=== PATIENT | male | born 1960 | race American Indian/Alaskan Native ===

== ENCOUNTER 2017-07-12 11:09 | Day surgery (SDC) | payer OTHER ==
[~2017-07-12 11:09] MED LIST: LACTATED RINGERS 1,000 ML IV SCH; VERSED IV NR; WATER FOR IRRIG STERILE IR ONE; mitoMYcin 0.02% Opth Soln *OR USE ONLY OS ONE
[2017-07-12] MEDS ORDERED: mitoMYcin 0.02% Opth Soln *OR USE ONLY OP ONE (13:00)
[2017-07-12] MEDS ORDERED: TETRACAINE 0.5% OS SCH (13:20)
[2017-07-12] MEDS ORDERED: TETRACAINE 0.5% ONE ×2 (13:35)
[2017-07-12] MEDS ORDERED: VIGAMOX ONE ×2 (13:36)
[2017-07-12] MEDS: VIGAMOX OS SCH ×2 (13:45→13:50)
[2017-07-12] MEDS ORDERED: XYLOCAINE 2%/ EPI 1:200,000 INFILTRATI ONE (15:30)
[2017-07-12] MEDS ORDERED: XYLOCAINE 1%/ EPI 1:100,000 INFILTRATI ONE ×2 (15:31→17:00)
[2017-07-12] MEDS ORDERED: SUBLIMAZE ONE (16:43)
[2017-07-12] MEDS ORDERED: VERSED ONE (16:46)
[2017-07-12] MEDS ORDERED: WATER FOR IRRIG STERILE IR ONE (16:59)
[2017-07-12] MEDS ORDERED: mitoMYcin 0.02% Opth Soln *OR USE ONLY OS ONE (17:10)
--- NOTE | 2017-07-12 17:16 | Anesthesia Day of Surgery ---
Anesthesia Day of Surgery - Day of Surgery Patient Examined: Yes Patient H&P Reviewed: Yes Patient is NPO: Yes
--- NOTE | 2017-07-12 17:17 | Anesthesia Consultation ---
Anesthesia Consult and Med Hx Date of service: 07/12/17 - Airway Anesthetic Teeth Evaluation: Good ROM Head & Neck: Adequate Mental/Hyoid Distance: Adequate Mallampati Class: Class II Intubation Access Assessment: Probably Good - Pulmonary Exam CTA: Yes - Cardiac Exam Cardiac Exam: RRR - Pre-Operative Health Status ASA Pre-Surgery Classification: ASA2 Proposed Anesthetic Plan: IV Sedation - Pulmonary Hx Sleep Apnea: Yes - Cardiovascular System Hx Hypertension: Yes (10) - Central Nervous System Hx Psychiatric Problems: No - Other Systems Hx Alcohol Use: No Hx Substance Use: No Hx Cancer: No
--- NOTE | 2017-07-12 17:29 | Post Anesthesia Evaluation ---
- Post Anesthesia Evaluation Patient Participated: Yes Airway Patent: Yes Stable Respiratory Function: Yes Nausea/Vomiting: No Temp > 96.8F: Yes Pain Manageable: Yes Adequeate Hydration: Yes Anesthesia Complications: No
--- NOTE | 2017-07-12 17:39 | Operative Report ---
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 TARRING MACHINE OPERATOR SURGEON: none ANESTHESIA: Monitored anesthesia care WEEDER: COMPLICATIONS: None ALLERGIES:NKDA PREOPERATIVE NOTE: The risks, benefits and alternatives of surgery were explained to the patient who after confirmining understanding elected to proceed with surgery. The risks discussed included but were not limited to infection, further surgery, loss of vision, loss of the eye. The patient had multiple opportunities to ask questions and have them answered. Preoperative instruction sheet was provided and explained to the patient and/or family. PROGNOSIS: Excellent INDICATIONS FOR SURGERY: Distortion of vision from the lesion. Without treatment , permanent visual loss is expected. OPERATIVE REPORT: The patient was taken into the preoperative area and then sedated and monitored by Anesthesia. The patient was prepped by applying a Betadine scrub to the periorbital area, the adjacent cheek, and the forehead. The prepped areas were dried with sterile gauze. The patient was draped, and a speculum was placed between the eyelids. 2% lidocaine was injected below the body of the pterygium. A cut-down was made through the body of the pterygium to bare sclera. The dissection was then carried towards the limbus, elevating up the pterygium. Moderate bleeding was encountered and treated with cautery. Once the dissection was taken to the limbus, the head of the pterygium was dissected off the cornea with a Tooke knife. The pterygium was densely scarred into the underlying stroma, making the dissection process difficult to perform. A superficial dissection plane was made in a few areas. The mass of fibrous growth was then excised from the limbus. A janina bur on a high-speed drill was used to smooth the area of the cornea where the pterygium was removed. This was done in order to leave the tissue smooth and minimize the chance of recurrence. A rough limbal surface increases the risks of irritation, inflammation, and the possibility of postoperative recurrence in the eye. The limbal area was smoothed with the janina bur, and care was taken not to remove too much tissue, leaving the cornea ectatic. After the scar tissue was removed, Mitomycin-C was placed on bare sclera x 60 secs on the eye with Weck-alessandro sponges and immediately irrigated off. The irrigation was done liberally to prevent any Mitomycin-C contamination to the rest of the field and the eye. The cornea was irrigated with balanced salt solution. Once the pterygium was excised and the cornea smoothed, cautery was used to control any bleeding in the bed of bare sclera. The peripheral edges of remaining conjunctiva around the bare sclera had its edges undermined slightly to allow it to be fixed to the underlying sclera when the tissue adhesive would be applied. Calipers were then used to measure the width and length of the area of bare sclera. After marking the tips of the calipers, they were used to aguila the amniotic graft. Scissors were next used to first undermine and then excise the graft. Fine-tooth forceps were used carefully to elevate the graft and moved to the area of the bare sclera. It was moved carefully to make sure that first of all the epithelial side remained upward . After the graft was found to be suitable for the area to be covered, it was temporarily moved off the bare sclera and Tisseel tissue adhesive was applied in its two components as separate stages over the area of bare sclera. The graft was placed back in position and its edges were first pushed down 360 to allow firm fixation. The central area was also pushed down with firm pressure from a flat surfaced instrument. Next the edges of the previously undermined adjacent conjunctiva were pushed down to allow firm fixation. The flap was allowed to stay unmanipulated for ten minutes prior to removing the lid speculum. MEDICATIONS APPLIED AT END OF SURGERY: bandage Contact lens was placed onto the eye fallowed by the application of Vigamox. DISCHARGE SUMMARY: The patient was released in stable condition. The patient and those with the patient were given a written sheet of postoperative instructions and counseling on any abnormal laboratory studies. They are to call immediately for difficulties.
--- NOTE | 2017-07-12 17:41 | Short Stay Summary ---
Short Stay Documentation Date of service: 07/12/17 - History H&P: obtained from office - Allergies and Medications Current Medications: Allergies No Known Allergies Allergy (Verified 07/10/17 15:05) Home Medications Medication Instructions Recorded Confirmed Last Taken Type Lisinopril [Zestril] 20 mg PO QDAY 07/10/17 07/12/17 07/11/17 07:00 History Active Medications Lactated Ringer's (Lactated Ringers) 1,000 mls @ 100 mls/hr IV DIRECT JENNIFER Moxifloxacin HCl (Vigamox) 1 drops OS Q5MIN JENNIFER Stop: 07/12/17 23:59 Last Admin: 07/12/17 13:50 Dose: 1 drops Prednisolone Acetate (Pred Forte 1%) 1 drops OS QID JENNIFER Tetracaine HCl (Tetracaine 0.5%) 1 drops OS ONCE JENNIFER Stop: 07/12/17 23:59 Last Admin: 07/12/17 13:45 Dose: 1 drops - Brief post op/procedure progress note Date of procedure: 07/12/17 Pre-op diagnosis: left pterygium Post-op diagnosis: same Procedure: Pterygium excision with mitomycin-C and amniotic graft membrane placement left eye Anesthesia: MAC, local Surgeon: DELMY OCONNOR Estimated blood loss: none Pathology: list (left nasal pterygium) Specimen disposition: to lab Condition: stable - Disposition Condition at discharge: Good Disposition: DC-01 TO HOME OR SELFCARE - Discharge Diagnoses (1) Pterygium of eye Status: Resolved Qualifiers: Laterality: left Qualified Code(s): H11.002 - Unspecified pterygium of left eye Short Stay Discharge Plan Follow up with: VIKTORIA BROWN MD [Primary Care Provider] - 7 Days
[2017-07-12] MEDS ORDERED: PRED FORTE 1% OS SCH (18:00)
[2017-07-12 19:07] VITALS: BP 140/83
== END 2017-07-12 18:45 | disposition home or self-care (01) ==
LOC: OR 11:09
DX: H11.002 Unspecified pterygium of left eye (principal); I10 Essential (primary) hypertension; G47.30 Sleep apnea, unspecified
CPT/HCPCS: 65426; 88304; C9250; J2250; J3010; J7315; V2790

== ENCOUNTER 2020-06-14 07:49 | Day surgery (SDC) | payer OTHER ==
[~2020-06-14 07:49] MED LIST changes: +ACETAMINOPHEN 500 MG TAB PO SCH; +MIDAZOLAM 2 MG/2 ML INJ IV NR; -VERSED IV NR; -WATER FOR IRRIG STERILE IR ONE; -mitoMYcin 0.02% Opth Soln *OR USE ONLY OS ONE
[2020-06-14] MEDS ORDERED: ONDANSETRON 4 MG/2 ML INJ IV PRN (08:46)
[2020-06-14] MEDS ORDERED: fentaNYL 100 MCG/2 ML INJ IV PRN (08:46)
--- NOTE | 2020-06-14 08:46 | Anesthesia Day of Surgery ---
Anesthesia Day of Surgery - Day of Surgery Patient Examined: Yes Patient H&P Reviewed: Yes Patient is NPO: Yes
--- NOTE | 2020-06-14 08:46 | Anesthesia Consultation ---
Anesthesia Consult and Med Hx Date of service: 06/14/20 - Airway Anesthetic Teeth Evaluation: Good, Caps, Crowns ROM Head & Neck: Adequate Mental/Hyoid Distance: Adequate Mallampati Class: Class III Intubation Access Assessment: Possibly Difficult - Pre-Operative Health Status ASA Pre-Surgery Classification: ASA2 Proposed Anesthetic Plan: General - Pulmonary Hx Smoking: No Hx Respiratory Symptoms: No Hx Sleep Apnea: Yes (intermittently compliant with CPAP) - Cardiovascular System Hx Hypertension: Yes Hx Heart Attack/AMI: No Hx Percutaneous Transluminal Coronary Angioplasty (PTCA): No - Central Nervous System CVA: No - Endocrine Hx Renal Disease: No Hx Liver Disease: No Hx Insulin Dependent Diabetes: No Hx Non-Insulin Dependent Diabetes: No Hx Thyroid Disease: No - Other Systems Hx Obesity: No - Additional Comments Anesthesia Medical History Comments: No hx anesthetic complications.
[2020-06-14] MEDS ORDERED: LIDOCAINE MPF (2%) 20 MG/1 ML VIAL 5 ML ONE (09:47)
[2020-06-14] MEDS ORDERED: fentaNYL 100 MCG/2 ML INJ ONE (09:47)
[2020-06-14] MEDS ORDERED: propofoL 200 MG/20 ML VIAL IV ONE (09:47)
[2020-06-14] MEDS ORDERED: GENTAMICIN/NS 80 MG/100 ML 100 ML IV SCH (10:00)
[2020-06-14] MEDS ORDERED: ceFAZolin/STERILE WATER 2 GM/20 ML SYRINGE IV NR (10:00)
[2020-06-14] MEDS ORDERED: WATER FOR IRRIG STERILE 2000 ML IR ONE (10:00)
[2020-06-14] MEDS ORDERED: LIDOCAINE PF 100 MG/5 ML (CARDIAC SYRINGE) IV ONE (10:21)
[2020-06-14] MEDS ORDERED: KETOROLAC 30 MG/1 ML INJ ONE (10:21)
[2020-06-14] MEDS ORDERED: dexAMETHasone 20 MG/5 ML VIAL ONE (10:21)
[2020-06-14] MEDS ORDERED: ONDANSETRON 4 MG/2 ML INJ ONE (10:30)
--- NOTE | 2020-06-14 10:30 | Short Stay Summary ---
Short Stay Documentation Date of service: 06/14/20 - History H&P: obtained from office - Allergies and Medications Current Medications: Allergies No Known Allergies Allergy (Verified 06/10/20 15:46) Home Medications Medication Instructions Recorded Confirmed Last Taken Type lisinopriL [Zestril] 20 mg PO QDAY 07/10/17 06/14/20 06/13/20 History Active Medications Acetaminophen (Acetaminophen 500 Mg Tab) 1,000 mg PO PREOP JENNIFER Stop: 06/14/20 23:59 Last Admin: 06/14/20 09:10 Dose: 1,000 mg Documented by: Cefazolin Sodium (Cefazolin/Sterile Water 2 Gm/20 Ml Syringe) 2 gm IV PREOP NR Stop: 06/14/20 21:00 Fentanyl (Fentanyl 100 Mcg/2 Ml Inj) 50 mcg IV Q5MIN PRN PRN Reason: Pain , Severe (7-10) Stop: 06/14/20 23:00 Lactated Ringer's (Lactated Ringers) 1,000 mls @ 100 mls/hr IV DIRECT JENNIFER Stop: 06/14/20 23:59 Last Admin: 06/14/20 09:15 Dose: 100 mls/hr Documented by: Gentamicin Sulfate/Sodium Chloride (Gentamicin/Ns 80 Mg/100 Ml) 100 mls @ 200 mls/hr IV ONCE JENNIFER Stop: 06/14/20 21:00 Midazolam HCl (Midazolam 2 Mg/2 Ml Inj) 2 mg IV PREOP NR Stop: 06/14/20 23:59 Last Admin: 06/14/20 09:15 Dose: 2 mg Documented by: Ondansetron HCl (Ondansetron 4 Mg/2 Ml Inj) 4 mg IV ONCE PRN PRN Reason: Nausea And Vomiting Stop: 06/14/20 13:00 - Brief post op/procedure progress note Date of procedure: 06/14/20 Pre-op diagnosis: elevated psa 10, bph Post-op diagnosis: same Procedure: cysto, rpg, pus 40cc, prostate bx Anesthesia: NITZA Surgeon: FIDE PANTOJA Estimated blood loss: minimal Pathology: list (prostate cores) Specimen disposition: to lab Condition: stable - Hospital course Hospital course: bactrim & norco on chart - Disposition Condition at discharge: Stable Disposition: DC- TO HOME OR SELFCARE Short Stay Discharge Plan Follow up with: AKINYULIANA MITCHELLOTAYO OMOLOLA, MD [Primary Care Provider] - 7 Days
--- NOTE | 2020-06-14 11:35 | Ultrasound Report ---
ULTRASOUND TRANSRECTAL HISTORY: Elevated PSA levels. Guidance for prostate biopsy. TECHNIQUE: Transrectal grayscale ultrasound. FINDINGS: Transrectal ultrasound guidance was provided by radiology during prostate biopsy by urology. Prostate volume measures 41.4 cc. Please correlate with the procedural report as needed. Signer Name: Mayur Weir Jr, MD Signed: 06/14/2020 11:31 AM Workstation Name: [id number]
--- NOTE | 2020-06-14 14:00 | Operative Report ---
PREOPERATIVE DIAGNOSES: Elevated PSA of 10. POSTOPERATIVE DIAGNOSES: Elevated PSA of 10, BPH. PROCEDURE: Cystoscopy, bilateral retrograde pyelograms, transrectal ultrasound 40 mL, saturation biopsy. SURGEON: Salvador Yoon MD ANESTHESIA: General. ESTIMATED BLOOD LOSS: Minimal. FLUIDS: Crystalloid. COMPLICATIONS: No complications. INDICATIONS: This patient is a 59-year-old male with a history of elevated PSA. He had previous biopsy for PSA of 6. Most recent PSA was 10. MRI of the prostate revealed a suspicious area on the right side, small in size. Discussed fusion versus saturation biopsy. The patient agreed to proceed with surgical intervention. He wanted saturation biopsy. DESCRIPTION OF PROCEDURE: The patient was taken to the operative suite, placed in a supine position. After adequate general anesthesia, placed in a dorsal lithotomy position, prepped and draped in a sterile fashion. Pancystourethroscopy was performed with a 22-American Storz cystoscope, no urethral abnormalities except for some mild stenosis at the bulbar urethra. Prostate mild to moderate trilobar obstruction. Bladder, no tumors or stones were noted. He does have some diffuse trabeculation. Both ureteral orifices in normal position. Bilateral retrograde pyelograms were obtained with an 8-American Joanne catheter and 8 mL of contrast. No filling defects or obstruction. Next, using prostate ultrasound, sagittal and transverse planes were obtained for total measurement of 40 mL. No obvious lesions could be appreciated on ultrasound; however 12-core biopsy was obtained placing 2 cores in each cup as saturation. The patient tolerated the procedure well. Rectal exam was benign. He was extubated and taken to recovery room in stable condition. He will go home on Bactrim and [place] and follow up in the office. JOB# [id number] [facility]/PATY
--- NOTE | 2020-06-14 16:03 | Fluoroscopy Report ---
FLUOROSCOPY RETROGRADE UROGRAPHY HISTORY: Elevated PSA, BPH FINDINGS: Fluoroscopy was provided by radiology during retrograde urography by the urologist. There i s normal filling of both renal collecting systems. No filling defect or abnormal dilatation is identi fied. IMPRESSION: Unremarkable bilateral retrograde pyelograms Fluoroscopy time: 19 seconds Fluoroscopic images: 6 Signer Name: Mayur Weir Jr, MD Signed: 06/14/2020 3:59 PM Workstation Name: [id number]
[2020-06-14 19:04] VITALS: BP 142/88
== END 2020-06-14 07:50 | disposition home or self-care (01) ==
LOC: OR 07:49
PROVIDERS: ATTEND Urology
DX: R97.20 Elevated prostate specific antigen [PSA] (principal); N40.0 Benign prostatic hyperplasia without lower urinary tract symptoms; C61 Malignant neoplasm of prostate; G43.909 Migraine, unspecified, not intractable, without status migrainosus; E78.00 Pure hypercholesterolemia, unspecified; I10 Essential (primary) hypertension; G47.30 Sleep apnea, unspecified; Z96.652 Presence of left artificial knee joint; Z72.89 Other problems related to lifestyle
CPT/HCPCS: 52005; 55700; 74420; 76872; 88305; A4217; C1758; J0690; J1100; J1580; J1885; J2001; J2250; J2405; J2704; J3010; J7120; Q9967

== ENCOUNTER 2020-09-06 08:12 | Observation (INO) | payer OTHER ==
[~2020-09-06 08:12] MED LIST changes: +BUPIVACAINE/PF (0.5%) 5 MG/1 ML 30 ML VIAL INFILTRATI ONE; +CALCIUM CHLORIDE 1,000 MG/10 ML SYRINGE IV ONE; +CELECOXIB 200 MG CAP PO NR; +CITRIC ACID-SOD CITRATE 0 ML IV ONE; +GABAPENTIN 300 MG CAP PO NR; +HYDROmorphone 1 MG/1 ML INJ ONE; -LACTATED RINGERS 1,000 ML IV SCH; +LIDOCAINE MPF (2%) 20 MG/1 ML VIAL 5 ML ONE; +METHYLENE BLUE 50 MG/10 ML AMP ONE; +ONDANSETRON 4 MG/2 ML INJ ONE; +ROCURONIUM 50 MG/5 ML INJ IV ONE; +SCOPOLAMINE TRANSDERMAL PATCH 72 HR TD NR; +THROMBIN (RECOMBINANT) 5,000 UNIT VIAL TP ONE; +dexAMETHasone 20 MG/5 ML VIAL ONE; +fentaNYL 100 MCG/2 ML INJ IV PRN; +propofoL 200 MG/20 ML VIAL IV ONE
[2020-09-06] MEDS ORDERED: ceFAZolin/Water 2 GM/20 ML 2 GM/20 ML SYRINGE IV NR (09:00)
[2020-09-06] MEDS ORDERED: HYDROmorphone 1 MG/1 ML INJ IV PRN (09:28)
[2020-09-06] MEDS ORDERED: ONDANSETRON 4 MG/2 ML INJ IV PRN ×2 (09:28→16:40)
--- NOTE | 2020-09-06 09:28 | Anesthesia Consultation ---
Anesthesia Consult and Med Hx Date of service: 09/06/20 - Airway Anesthetic Teeth Evaluation: Good ROM Head & Neck: Adequate Mental/Hyoid Distance: Adequate Mallampati Class: Class III Intubation Access Assessment: Possibly Difficult - Pre-Operative Health Status ASA Pre-Surgery Classification: ASA2 Proposed Anesthetic Plan: General - Pulmonary Hx Smoking: No Hx Respiratory Symptoms: No Hx Sleep Apnea: Yes (+ CPAP) - Cardiovascular System Hx Hypertension: Yes Hx Heart Attack/AMI: No Hx Percutaneous Transluminal Coronary Angioplasty (PTCA): No Hx Cardia Arrhythmia: No - Central Nervous System CVA: No - Endocrine Hx Renal Disease: No Hx Liver Disease: No Hx Insulin Dependent Diabetes: No Hx Non-Insulin Dependent Diabetes: No Hx Thyroid Disease: No - Other Systems Hx Cancer: Yes (prostate ca) Hx Obesity: No - Additional Comments Anesthesia Medical History Comments: Hx PDNV.
--- NOTE | 2020-09-06 09:28 | Anesthesia Day of Surgery ---
Anesthesia Day of Surgery - Day of Surgery Patient Examined: Yes Patient H&P Reviewed: Yes Patient is NPO: Yes
[2020-09-06] MEDS: LACTATED RINGERS 1,000 ML IV SCH (09:45)
[2020-09-06 09:55] LABS: Hematocrit 44.4 % (35.5-45.6); Mean Corpuscular HGB Conc 34 % (32-34); Mean Corpuscular Volume 89 fl (84-94); Platelet Count 220 K/mm3 (140-440); Red Blood Count 4.98 M/mm3 (3.65-5.03); Red Cell Distribution Width 14.9 % (13.2-15.2)
[2020-09-06 10:25] LABS: Alanine Aminotransferase 17 units/L (7-56); Albumin 4.5 g/dL (3.9-5); BUN/Creatinine Ratio 14; Blood Urea Nitrogen 14 mg/dL (9-20); Calcium 9.8 mg/dL (8.4-10.2); Hemolysis Index 6
[2020-09-06] MEDS ORDERED: BUPIVACAINE-EPINEPHRINE/PF 0.25%-1:200,000 (30 ML) VIAL INFILTRATI ONE (10:54)
[2020-09-06] MEDS ORDERED: dexAMETHasone 4 MG/ML VIAL ONE (10:54)
[2020-09-06] MEDS ORDERED: CITRIC ACID-SOD CITRATE 500 ML IV ONE (13:23)
[2020-09-06] MEDS ORDERED: THROMBIN (RECOMBINANT) 5,000 UNIT VIAL TP ONE ×2 (13:24→15:05)
[2020-09-06] MEDS ORDERED: METHYLENE BLUE 50 MG/10 ML AMP ONE (13:24)
[2020-09-06] MEDS ORDERED: ROCURONIUM 50 MG/5 ML INJ IV ONE (14:50)
[2020-09-06] MEDS ORDERED: LACTATED RINGERS 1,000 ML ONE (14:50)
[2020-09-06] MEDS ORDERED: SODIUM CHLORIDE 0.9% IRR 1,500 ML BOTTLE IR ONE (15:05)
[2020-09-06] MEDS ORDERED: CALCIUM CHLORIDE 1,000 MG/10 ML SYRINGE IV ONE (15:06)
[2020-09-06] MEDS ORDERED: SODIUM CHLORIDE 0.9% IRRIG SOLN 2000 ML IR ONE (15:06)
[2020-09-06] MEDS ORDERED: CITRIC ACID-SOD CITRATE SOLN 500 ML IV SOLN IV ONE (15:07)
[2020-09-06] MEDS ORDERED: PHENYLEPHRINE/NS 1,000 MCG/10 ML SYRINGE (OR USE) IV ONE (15:14)
--- NOTE | 2020-09-06 16:39 | Short Stay Summary ---
Short Stay Documentation Date of service: 09/06/20 - History H&P: obtained from office - Allergies and Medications Current Medications: Allergies No Known Allergies Allergy (Verified 06/10/20 15:46) Home Medications Medication Instructions Recorded Confirmed Last Taken Type lisinopriL [Zestril] 10 mg PO QDAY 07/10/17 09/03/20 09/05/20 History Pitavastatin Calcium [LiVALO] 4 mg PO DAILY 09/03/20 09/03/20 09/05/20 History Active Medications Acetaminophen (Acetaminophen 500 Mg Tab) 1,000 mg PO PREOP JENNIFER Stop: 09/06/20 23:59 Last Admin: 09/06/20 09:37 Dose: 1,000 mg Documented by: Celecoxib (Celecoxib 200 Mg Cap) 200 mg PO PREOP NR Stop: 09/06/20 23:59 Last Admin: 09/06/20 09:37 Dose: 200 mg Documented by: Fentanyl (Fentanyl 100 Mcg/2 Ml Inj) 100 mcg IV ONCE PRN PRN Reason: sedation for nerve block Last Admin: 09/06/20 12:46 Dose: 100 mcg Documented by: Gabapentin (Gabapentin 300 Mg Cap) 300 mg PO PREOP NR Stop: 09/06/20 23:59 Last Admin: 09/06/20 09:37 Dose: 300 mg Documented by: Hydromorphone HCl (Hydromorphone 1 Mg/1 Ml Inj) 0.5 mg IV Q10MIN PRN PRN Reason: Pain , Severe (7-10) Stop: 09/06/20 23:00 Lactated Ringer's (Lactated Ringers) 1,000 mls @ 100 mls/hr IV DIRECT JENNIFER Stop: 09/06/20 23:59 Last Admin: 09/06/20 09:45 Dose: 100 mls/hr Documented by: Cefazolin Sodium (Ancef/Sterile Water 2 Gm/20 Ml) 2 gm in 20 mls @ 80 mls/hr IV PREOP NR; Protocol Stop: 09/06/20 20:00 Midazolam HCl (Midazolam 2 Mg/2 Ml Inj) 2 mg IV PREOP NR Stop: 09/06/20 23:59 Last Admin: 09/06/20 12:46 Dose: 2 mg Documented by: Scopolamine (Scopolamine Transdermal Patch 72 Hr) 1 each TD PREOP NR Stop: 09/06/20 23:59 Last Admin: 09/06/20 09:35 Dose: 1 each Documented by: - Brief post op/procedure progress note Date of procedure: 09/06/20 Pre-op diagnosis: prostate cancer Post-op diagnosis: same Procedure: robotic proststectomy Anesthesia: GETA Surgeon: FIDE PANTOJA Estimated blood loss: minimal (prostate) Pathology: list Specimen disposition: to lab Condition: stable - Hospital course Hospital course: bactrim,norco, post op info on chart looks good waldemar removed home with ovalles - Disposition Condition at discharge: Stable Disposition: DC-01 TO HOME OR SELFCARE Short Stay Discharge Plan Follow up with: VIKTORIA BROWN MD [Primary Care Provider] - 7 Days
[2020-09-06] MEDS ORDERED: NALOXONE 0.4 MG/1 ML INJ IV PRN (16:40)
[2020-09-06] MEDS ORDERED: MORPHINE 4 MG/1 ML INJ IV PRN (16:40)
[2020-09-06] MEDS ORDERED: ZOLPIDEM 5 MG TAB PO PRN (16:40)
[2020-09-06] MEDS ORDERED: ACETAMINOPHEN 325 MG TAB PO PRN (16:40)
[2020-09-06] MEDS ORDERED: HYDROcodone/ACETAMINOPHEN 5-325 MG TAB PO PRN (16:40)
[2020-09-06] MEDS ORDERED: NEOSTIGMINE 10MG/10 ML INJ MDV ONE (16:47)
[2020-09-06] MEDS ORDERED: GLYCOPYRROLATE 0.4 MG/2 ML INJ ONE (16:47)
[2020-09-06] MEDS: ceFAZolin/NS 1 GM/50 ML 1 GM/50 ML BAG IV SCH (21:48)
--- NOTE | 2020-09-06 21:51 | Operative Report ---
DATE OF SURGERY: 09/06/2020 PREOPERATIVE DIAGNOSIS: Prostate cancer. POSTOPERATIVE DIAGNOSIS: Prostate cancer. PROCEDURE: Robotic-assisted laparoscopic prostatectomy, bladder neck suspension, stem cell implant. SURGEON: Salvador Yoon MD ULTRASOUND SONOGRAPHER: Carolina Saul. ANESTHESIA: General. ESTIMATED BLOOD LOSS: ____ mL, 150 mL Cell Saver. DRAINS: Jonathan-Ramesh drain x1. COMPLICATIONS: No complications. INDICATIONS: This patient is a 59-year-old gentleman seen in the office for an elevated PSA of 6.2. He underwent a biopsy 2 years ago, which was negative. PSA went to 10. He underwent recent saturation biopsy of the prostate and was found to have Karis score 8 adenocarcinoma of the prostate. CT scan and bone scan were negative. He presents now for surgical intervention. DESCRIPTION OF PROCEDURE: The patient was taken to the operative suite, placed in supine position. After adequate general anesthesia, was placed in a modified dorsal lithotomy position, prepped and draped in a sterile fashion. Barclay catheter was placed on the operative field. The patient has a history of abdominal wall hernia with mesh. A 5 mm port was placed in the right upper quadrant under direct vision to evaluate his umbilical hernia, a small hernia could be appreciated. No significant adhesions were then noted. A 1 cm supraumbilical incision was made. Port was then placed under direct vision approximately 2 cm above his umbilical hernia, 8 mm ports were then marked 15 cm cephalad. The pubic symphysis was marked an additional 9 cm lateral, which allowed for placement of 8 mm ports on the left, one 8 mm port on the right and an additional 10 mm helper port. The patient was placed in exaggerated Trendelenburg position. No signs of metastasis or bleeding could be appreciated. Second arch was identified posterior to the prostate, bladder. It was scored. Seminal vesicles and vas deferens were identified. Robotic cart was docked between the legs. ____ vas deferens were transected. Attention was taken to the anterior abdominal wall laterally. Lateral umbilical ligament was scored, taken down to the pubic rami. Bladder flap was dropped. The dorsal vein complex was then controlled with a 60 mm vascular stapler. The endopelvic fascia was opened bilaterally without difficulty. Anterior bladder neck was transected. Barclay catheter could be appreciated and was pulled anteriorly. The patient had a fair amount of inflammation noted in the bladder neck. Posterior bladder neck was transected with same inflammation noted as well as a large median lobe. Median lobe was excised, a rim of bladder neck was transected and sent for routine pathologic evaluation. Lateral pedicles were then controlled with a 60 mm vascular stapler. Dissection was then taken to the apex of the prostate. [place] was transected. Posterior to the prostate was dissected free and prostate was placed in the EndoCatch bag. Examination of the rectum with no injuries could be appreciated. Copious irrigation was performed. Adequate hemostasis was achieved. No bladder neck instruction was needed due to the size of the bladder neck. Double armed V-Loc stitch was placed at the 6 o'clock position of the bladder neck corresponding aspect of the urethra, running stitch was placed bilaterally. A new 18-[place] Barclay catheter was placed into the bladder without difficulty. Anastomotic stitch was cinched down. A 15 mL of water in the balloon irrigated well. No leak. V-Loc stitch was then placed in the pubic rami posteriorly to add tension (bladder neck suspension). [place] were then cut. Stem cell graft was placed on the anterior wall of the rectum and the area of the neurovascular bundle, corresponding to the 5 o'clock and 7 o'clock positions of the prostate. Platelet membrane was placed on the anterior aspect of the urethra. Platelet rich plasma, platelet poor plasma was injected around the urethra to aid with continence and erection. A 10 mm Jonathan-Ramesh drain was brought out through the 8 mm port on the left. The robotic cart was removed. The patient placed in a supine position. A supraumbilical incision was extended slightly to allow removal of the prostate, 0 Vicryl in a [id number] fashion was used to close the supraumbilical incision. The other incisions were closed with a 2-0 Vicryl in interrupted fashion. Jonathan-Ramesh drain was secured with 2-0 silk in an interrupted fashion. Barclay catheter sideport was folded over and tied with 0 silk in interrupted fashion. The patient tolerated the procedure well and was extubated and taken to recovery room. Carolina Saul was present throughout the procedure at the bedside to assist with surgical management. TID: [id number] RECEIPT: [id number] BAKARI/LUIS ANTONIO/FLAKO
--- NOTE | 2020-09-06 23:22 | Consultation ---
History of Present Illness - Reason for Consult Consult date: 09/06/20 Medical management Requesting physician: FIDE PANTOJA - History of Present Illness S/p robotic prostatectomy. Postop patient doing well. No shortness of breath no chest pain. No diaphoresis. Lying comfortably. Past History Past Medical History: hypertension, hyperlipidemia Past Surgical History: Other (Robotic prostatectomy) Social history: lives with family, full code Family history: hypertension Medications and Allergies Allergies Allergy/AdvReac Type Severity Reaction Status Date / Time No Known Allergies Allergy Verified 06/10/20 15:46 Home Medications Medication Instructions Recorded Confirmed Last Taken Type lisinopriL [Zestril] 10 mg PO QDAY 07/10/17 09/03/20 09/05/20 History Pitavastatin Calcium [LiVALO] 4 mg PO DAILY 09/03/20 09/03/20 09/05/20 History Active Meds: Active Medications Acetaminophen (Acetaminophen 500 Mg Tab) 1,000 mg PO PREOP JENNIFER Stop: 09/06/20 23:59 Last Admin: 09/06/20 09:37 Dose: 1,000 mg Documented by: Acetaminophen (Acetaminophen 325 Mg Tab) 650 mg PO Q4H PRN PRN Reason: Pain, Mild (1-3)/Fever > 100.5 Hydrocodone Bitart/Acetaminophen (Hydrocodone/Acetaminophen 5-325 Mg Tab) 2 each PO Q4H PRN PRN Reason: Pain, Moderate (4-6) Atorvastatin Calcium (Atorvastatin 20 Mg Tab) 20 mg PO QHS JENNIFER Last Admin: 09/06/20 21:49 Dose: 20 mg Documented by: Celecoxib (Celecoxib 200 Mg Cap) 200 mg PO PREOP NR Stop: 09/06/20 23:59 Last Admin: 09/06/20 09:37 Dose: 200 mg Documented by: Fentanyl (Fentanyl 100 Mcg/2 Ml Inj) 100 mcg IV ONCE PRN PRN Reason: sedation for nerve block Last Admin: 09/06/20 12:46 Dose: 100 mcg Documented by: Gabapentin (Gabapentin 300 Mg Cap) 300 mg PO PREOP NR Stop: 09/06/20 23:59 Last Admin: 09/06/20 09:37 Dose: 300 mg Documented by: Lactated Ringer's (Lactated Ringers) 1,000 mls @ 100 mls/hr IV DIRECT JENNIFER Stop: 09/06/20 23:59 Last Admin: 09/06/20 09:45 Dose: 100 mls/hr Documented by: Cefazolin Sodium (Ancef/Ns 1 Gm/50 Ml) 1 gm in 50 mls @ 100 mls/hr IV Q8H JENNIFER; Protocol Stop: 09/07/20 03:29 Last Admin: 09/06/20 21:48 Dose: 100 mls/hr Documented by: Lisinopril (Lisinopril 10 Mg Tab) 10 mg PO QDAY JENNIFER Midazolam HCl (Midazolam 2 Mg/2 Ml Inj) 2 mg IV PREOP NR Stop: 09/06/20 23:59 Last Admin: 09/06/20 12:46 Dose: 2 mg Documented by: Morphine Sulfate (Morphine 4 Mg/1 Ml Inj) 4 mg IV Q4H PRN PRN Reason: Pain , Severe (7-10) Naloxone HCl (Naloxone 0.4 Mg/1 Ml Inj) 0.1 mg IV Q2MIN PRN PRN Reason: Res Rate </= 8 or 02 SAT < 92% Ondansetron HCl (Ondansetron 4 Mg/2 Ml Inj) 4 mg IV Q8H PRN PRN Reason: Nausea And Vomiting Scopolamine (Scopolamine Transdermal Patch 72 Hr) 1 each TD PREOP NR Stop: 09/06/20 23:59 Last Admin: 09/06/20 09:35 Dose: 1 each Documented by: Zolpidem Tartrate (Zolpidem 5 Mg Tab) 5 mg PO QHS PRN PRN Reason: Sleep Review of Systems All systems: negative Exam - Constitutional Vitals: Temp Pulse Resp BP Pulse Ox 97.3 F L 87 18 157/93 93 09/06/20 19:00 09/06/20 19:00 09/06/20 19:00 09/06/20 19:00 09/06/20 19:00 General appearance: Present: no acute distress, well-nourished - EENT Eyes: Present: PERRL ENT: hearing intact, clear oral mucosa - Neck Neck: Present: supple, normal ROM - Respiratory Respiratory effort: normal Respiratory: bilateral: CTA - Cardiovascular Heart rate: 78 Rhythm: regular Heart Sounds: Present: S1 & S2. Absent: rub, click - Extremities Extremities: pulses symmetrical, No edema Peripheral Pulses: within normal limits - Abdominal General gastrointestinal: Present: soft, non-tender, non-distended, normal bowel sounds Male genitourinary: Present: normal - Integumentary Integumentary: Present: clear, warm, dry - Musculoskeletal Musculoskeletal: gait normal, strength equal bilaterally - Psychiatric Psychiatric: appropriate mood/affect, intact judgment & insight - Neurologic Neurologic: CNII-XII intact, moves all extremities Results - Labs CBC & Chem 7: 09/06/20 09:45 09/06/20 09:45 Assessment and Plan - Patient Problems (1) Hypertension Current Visit: Yes Status: Chronic Qualifiers: Hypertension type: primary hypertension Qualified Code(s): I10 - Essential (primary) hypertension Plan to address problem: Continue lisinopril. (2) Hyperlipidemia Current Visit: Yes Status: Chronic Qualifiers: Hyperlipidemia type: mixed hyperlipidemia Qualified Code(s): E78.2 - Mixed hyperlipidemia Plan to address problem: Continue statins. (3) DVT prophylaxis Current Visit: Yes Status: Acute Plan to address problem: SCDs and GI prophylaxis
[2020-09-07] MEDS: LACTATED RINGERS 1,000 ML IV SCH (01:14)
[2020-09-07] MEDS: ceFAZolin/NS 1 GM/50 ML 1 GM/50 ML BAG IV SCH (04:11)
[2020-09-07 08:13] VITALS: BP 123/74
[2020-09-07] MEDS ORDERED: PITAVASTATIN CALCIUM 4 MG PO SCH (10:00)
[2020-09-07] MEDS ORDERED: LISINOPRIL 10 MG TAB PO SCH (10:00)
[2020-09-07] MEDS ORDERED: LISINOPRIL 20 MG TAB PO SCH (10:00)
--- NOTE | 2020-09-07 12:37 | Progress Note ---
Assessment and Plan Assessment and plan: -- Hypertension Current Visit: Yes Status: Chronic Continue lisinopril. Well-controlled -- Hyperlipidemia Current Visit: Yes Status: Chronic Continue statins. Low-cholesterol diet --DVT prophylaxis Current Visit: Yes Status: Acute SCDs and GI prophylaxis Increase ambulation as tolerated post discharge History of prostate cancer status post robotic prostatectomy Postop care and management per urology Medically stable for discharge Patient needs to follow-up with primary care physician for his medical needs Thank you for this consultation we will sign off History Interval history: Patient with history of prostate cancer status post robotic prostatectomy Stable for discharge Urologist planned discharge for today Vital signs noted Hospitalist Physical - Physical exam Narrative exam: Physical exam no new changes - Constitutional Vitals: Temp Pulse Resp BP Pulse Ox 98.4 F 76 16 123/74 98 09/07/20 07:54 09/07/20 08:17 09/07/20 07:54 09/07/20 08:17 09/07/20 07:54 General appearance: Present: no acute distress, well-nourished Results - Labs CBC & Chem 7: 09/06/20 09:45 09/06/20 09:45 Labs: Laboratory Last Values WBC 5.6 K/mm3 (4.5-11.0) 09/06/20 09:45 RBC 4.98 M/mm3 (3.65-5.03) 09/06/20 09:45 Hgb 15.0 gm/dl (11.8-15.2) 09/06/20 09:45 Hct 44.4 % (35.5-45.6) 09/06/20 09:45 MCV 89 fl (84-94) 09/06/20 09:45 MCH 30 pg (28-32) 09/06/20 09:45 MCHC 34 % (32-34) 09/06/20 09:45 RDW 14.9 % (13.2-15.2) 09/06/20 09:45 Plt Count 220 K/mm3 (140-440) 09/06/20 09:45 Sodium 138 mmol/L (137-145) 09/06/20 09:45 Potassium 4.2 mmol/L (3.6-5.0) 09/06/20 09:45 Chloride 101.1 mmol/L (98-107) 09/06/20 09:45 Carbon Dioxide 30 mmol/L (22-30) 09/06/20 09:45 Anion Gap 11 mmol/L 09/06/20 09:45 BUN 14 mg/dL (9-20) 09/06/20 09:45 Creatinine 1.0 mg/dL (0.8-1.3) 09/06/20 09:45 Estimated GFR > 60 ml/min 09/06/20 09:45 BUN/Creatinine Ratio 14 % 09/06/20 09:45 Glucose 82 mg/dL (75-100) 09/06/20 09:45 Calcium 9.8 mg/dL (8.4-10.2) 09/06/20 09:45 Total Bilirubin 0.70 mg/dL (0.1-1.2) 09/06/20 09:45 AST 19 units/L (5-40) 09/06/20 09:45 ALT 17 units/L (7-56) 09/06/20 09:45 Alkaline Phosphatase 65 units/L (35-129) 09/06/20 09:45 Total Protein 7.2 g/dL (6.3-8.2) 09/06/20 09:45 Albumin 4.5 g/dL (3.9-5) 09/06/20 09:45 Albumin/Globulin Ratio 1.7 % 09/06/20 09:45 Blood Type O POSITIVE 09/06/20 09:45 Antibody Screen Negative 09/06/20 09:45 Barclay/IV: Voiding Method Indwelling Catheter Active Medications - Current Medications Current Medications: Generic Name Dose Route Start Last Admin Trade Name Freq PRN Reason Stop Dose Admin Acetaminophen 650 mg 09/06/20 16:40 Acetaminophen 325 Mg Tab PO Q4H PRN Pain, Mild (1-3)/Fever > 100.5 Hydrocodone Bitart/Acetaminophen 2 each 09/06/20 16:40 Hydrocodone/Acetaminophen 5-325 Mg Tab PO Q4H PRN Pain, Moderate (4-6) Atorvastatin Calcium 20 mg 09/06/20 22:00 09/06/20 21:49 Atorvastatin 20 Mg Tab PO 20 mg QHS JENNIFER Administration Lisinopril 10 mg 09/07/20 10:00 09/07/20 08:17 Lisinopril 10 Mg Tab PO 10 mg QDAY JENNIFER Administration Morphine Sulfate 4 mg 09/06/20 16:40 Morphine 4 Mg/1 Ml Inj IV Q4H PRN Pain , Severe (7-10) Naloxone HCl 0.1 mg 09/06/20 16:40 Naloxone 0.4 Mg/1 Ml Inj IV Q2MIN PRN Res Rate </= 8 or 02 SAT < 92% Ondansetron HCl 4 mg 09/06/20 16:40 Ondansetron 4 Mg/2 Ml Inj IV Q8H PRN Nausea And Vomiting Zolpidem Tartrate 5 mg 09/06/20 16:40 Zolpidem 5 Mg Tab PO QHS PRN Sleep
== END 2020-09-07 11:00 | disposition home or self-care (01) ==
LOC: OR 08:12 → 3A 16:40 → 3B-SURG 17:11
PROVIDERS: ADMIT Urology; ATTEND Urology
DX: C61 Malignant neoplasm of prostate (principal); I10 Essential (primary) hypertension; E78.5 Hyperlipidemia, unspecified
CPT/HCPCS: 36415; 55866; 64450; 80053; 85027; 86850; 86900; 86901; 88309; 96365; 96366; A4217; A9270; G0378; J0690; J1100; J1170; J2250; J2370; J2405; J2704; J2710; J3010; J7120; Q4140; Q9968; 88305

== ENCOUNTER 2020-09-08 18:00 | Observation (INO) | payer OTHER ==
--- NOTE | 2020-09-08 18:37 | Event Note ---
ED Screening Note Date of service: 09/08/20 Time: 18:35 ED Screening Note: 59-year-old male patient with history of hypertension presents to the emergency department with complaints of chest pain or shortness of breath starting today. Patient underwent prostate surgery 2 days ago. States he is experiencing burning with urination and "thinks his Barclay is clogged." Patient is not anticoagulated. No history of venous thromboembolism. General: Awake, appropriately interactive, no acute distress. Neck: Supple. Full range of motion intact. Cardiovascular: Normal peripheral perfusion. Pulmonary: No respiratory distress. Patient is speaking normally without use of accessory muscles. Skin: No apparent rashes or lesions. Neurological: No facial asymmetry. Speech is clear. Follows commands. Patient is alert and oriented. Musculoskeletal: Moves all four extremities spontaneously with normal range of motion. Psych: Cooperative. Appropriate mood and affect. EKG, labs, and chest x-ray ordered. Decision to obtain further imaging deferred to additional ED providers following full history and comprehensive physical assessment. I have greeted and performed a focused rapid initial assessment of this patient. A comprehensive ED assessment and evaluation of the patient, analysis of all test results, and completion of the medical decision-making process will be conducted by additional ED providers. This initial assessment/diagnostic orders/clinical plan/treatment(s) is/are subject to change based on patients health status, clinical progression and re-assessment. Further treatment and workup at subsequent clinical provider's discretion. Patient/guardian urged not to elope from the ED as their condition may be serious if not clinically assessed and managed.
[2020-09-08 19:23] LABS: Basophils % (Auto) 0.3 % (0.0-1.8); Eosinophils % (Auto) 0.1 % (0.0-4.3); Hematocrit 44.6 % (35.5-45.6); Hemoglobin 14.6 gm/dl (11.8-15.2); Lymphocytes # (Auto) 1.8 K/mm3 (1.2-5.4); Mean Corpuscular HGB Conc 33 % (32-34); Mean Corpuscular Volume 90 fl (84-94); Monocytes # (Auto) 1.4 K/mm3 (0.0-0.8); Monocytes % (Auto) 10.4 % (0.0-7.3); Platelet Count 232 K/mm3 (140-440); Red Blood Count 4.94 M/mm3 (3.65-5.03); Red Cell Distribution Width 15.7 % (13.2-15.2)
[2020-09-08 19:28] LABS: INR 0.92 (0.87-1.13)
[2020-09-08 19:29] LABS: Partial Thromboplastin Time 23.5 Sec. (24.2-36.6)
[2020-09-08 19:44] LABS: Alanine Aminotransferase 13 units/L (7-56); Albumin 3.9 g/dL (3.9-5); BUN/Creatinine Ratio 12; Blood Urea Nitrogen 23 mg/dL (9-20); Calcium 9.5 mg/dL (8.4-10.2); Hemolysis Index 32
--- NOTE | 2020-09-08 19:51 | XRay Report ---
CHEST 2 VIEWS INDICATION / CLINICAL INFORMATION: C/O SHORTNESS OF BREATH TODAY. HAD PROSTRATE SURGERY ON 09/06. C/O PROSTRATE PAIN . COMPARISON: None available. FINDINGS: SUPPORT DEVICES: None. HEART / MEDIASTINUM: No significant abnormality. LUNGS / PLEURA: No significant pulmonary or pleural abnormality. No pneumothorax. ADDITIONAL FINDINGS: Moderate pneumoperitoneum likely secondary to recent prostatectomy 3 days ago IMPRESSION: 1. No acute findings. 2. Pneumoperitoneum likely secondary to recent prostatectomy Signer Name: Rod Howard MD Signed: 09/08/2020 7:47 PM Workstation Name: [id number]
[2020-09-09] MEDS ORDERED: SODIUM CHLORIDE 0.9% 1000 ML 1,000 ML IV ONE (03:10)
[2020-09-09] MEDS ORDERED: HYDROmorphone 1 MG/1 ML INJ IV ONE (03:14)
[2020-09-09] MEDS ORDERED: ONDANSETRON 4 MG/2 ML INJ IV ONE (03:14)
--- NOTE | 2020-09-09 03:14 | Emergency Department Report ---
ED Abdominal Pain HPI - General Chief Complaint: Dyspnea/Respdistress Stated Complaint: SOB, POST PROSTATE SURGERY PAIN, NAUSEA PUI?: No Time Seen by Provider: 09/09/20 03:09 Source: patient Mode of arrival: Ambulatory Limitations: No Limitations - History of Present Illness Initial Comments: Patient is a 59-year-old male presents emergency room with complaints of lower abdominal pain, leaking Barclay, nausea and shortness of breath. Patient states his shortness of breath has resolved. Patient states he has had several bouts of nausea vomiting chest pain. Patient states that his pain is a 10 out of 10. Patient states that he had prostate surgery on Sunday which was 3 days ago and the patient had a Barclay placed. Patient states the Barclay was working fine all of a sudden the pain increased and it started leaking around the Barclay and not into the Barclay bag. Patient states the pain is better with rest and worse with movement. Patient states the nausea and vomiting are improving. Patient denies recent travel. Patient denies recent international travel. Patient denies exposure to the novel coronavirus. Patient denies sick contacts. Patient denies fever and chills. Patient denies cough. Patient denies diar jani. Patient denies coming in contact with anybody with symptoms of the novel coronavirus. Patient's urologist Dr. Karrie LOZANO Complaint: abdominal pain Severity scale (0 -10): 10 - Related Data Home Medications Medication Instructions Recorded Confirmed Last Taken lisinopriL [Zestril] 10 mg PO QDAY 07/10/17 09/03/20 09/05/20 Pitavastatin Calcium [LiVALO] 4 mg PO DAILY 09/03/20 09/03/20 09/05/20 Allergies Allergy/AdvReac Type Severity Reaction Status Date / Time No Known Allergies Allergy Verified 09/08/20 18:25 ED Review of Systems ROS: Stated complaint: SOB, POST PROSTATE SURGERY PAIN, NAUSEA Other details as noted in HPI Constitutional: denies: chills, fever Eyes: denies: eye pain, eye discharge, vision change ENT: denies: ear pain, throat pain Respiratory: shortness of breath. denies: cough, wheezing Cardiovascular: denies: chest pain, palpitations Endocrine: no symptoms reported Gastrointestinal: abdominal pain, nausea, vomiting. denies: diarrhea Genitourinary: denies: urgency, dysuria Musculoskeletal: denies: back pain, joint swelling, arthralgia Skin: denies: rash, lesions Neurological: denies: headache, weakness, paresthesias Psychiatric: denies: anxiety, depression Hematological/Lymphatic: denies: easy bleeding, easy bruising ED Past Medical Hx - Past Medical History Previous Medical History?: Yes Hx Hypertension: Yes Hx Heart Attack/AMI: No Hx Congestive Heart Failure: No Hx Diabetes: No Hx Liver Disease: No Hx Renal Disease: No Hx Headaches / Migraines: Yes (Migraines) Hx Asthma: No Hx COPD: No Hx HIV: No - Surgical History Past Surgical History?: Yes Additional Surgical History: PROSTATE SURGERY - Family History Family history: no significant - Social History Smoking Status: Never Smoker Substance Use Type: None - Medications Home Medications: Home Medications Medication Instructions Recorded Confirmed Last Taken Type lisinopriL [Zestril] 10 mg PO QDAY 07/10/17 09/03/20 09/05/20 History Pitavastatin Calcium [LiVALO] 4 mg PO DAILY 09/03/20 09/03/20 09/05/20 History ED Physical Exam - General Limitations: No Limitations General appearance: alert, in no apparent distress - Head Head exam: Present: atraumatic, normocephalic - Eye Eye exam: Present: normal appearance - ENT ENT exam: Present: mucous membranes moist - Neck Neck exam: Present: normal inspection - Respiratory Respiratory exam: Present: normal lung sounds bilaterally. Absent: respiratory distress - Cardiovascular Cardiovascular Exam: Present: regular rate, normal rhythm. Absent: systolic murmur, diastolic murmur, rubs, gallop - GI/Abdominal GI/Abdominal exam: Present: soft, tenderness, normal bowel sounds. Absent: distended, guarding - Rectal Rectal exam: Present: deferred - Extremities Exam Extremities exam: Present: normal inspection - Back Exam Back exam: Present: normal inspection - Neurological Exam Neurological exam: Present: alert, oriented X3 - Psychiatric Psychiatric exam: Present: normal affect, normal mood - Skin Skin exam: Present: warm, dry, intact, normal color. Absent: rash ED Course Vital Signs 09/08/20 09/09/20 09/09/20 18:27 04:41 04:45 Temperature 99.2 F Pulse Rate 87 90 Respiratory 24 11 L 16 Rate Blood Pressure 176/107 [Right] O2 Sat by Pulse 96 96 Oximetry 09/09/20 05:01 Temperature Pulse Rate 89 Respiratory 17 Rate Blood Pressure [Right] O2 Sat by Pulse 95 Oximetry - Reevaluation(s) Reevaluation #1: Patient Barclay flushed and the patient states his pain is improved. Patient states is not leaking around the Barclay catheter anymore. 09/09/20 03:53 Reevaluation #2: I discussed all results with patient. I discussed plan of care with patient. Patient agrees with plan of care and admission. Patient to be admitted to the hospitalist service. 09/09/20 04:58 - Consultations Consultation #1: Hospitalist consulted for admission. Hospitalist to admit patient. 09/09/20 04:52 ED Medical Decision Making - Lab Data Result diagrams: 09/08/20 18:58 09/08/20 18:58 - Radiology Data Radiology results: report reviewed interpreted by me: Chest x-ray: No pneumonia, no pneumothorax, no foreign body, no osseous findings, no acute findings CHEST 2 VIEWS INDICATION / CLINICAL INFORMATION: C/O SHORTNESS OF BREATH TODAY. HAD PROSTRATE SURGERY ON 09/06. C/O PROSTRATE PAIN . COMPARISON: None available. FINDINGS: SUPPORT DEVICES: None. HEART / MEDIASTINUM: No significant abnormality. LUNGS / PLEURA: No significant pulmonary or pleural abnormality. No p neumothorax. ADDITIONAL FINDINGS: Moderate pneumoperitoneum likely secondary to recent prostatectomy 3 days ago IMPRESSION: 1. No acute findings. 2. Pneumoperitoneum likely secondary to recent prostatectomy CT ABDOMEN AND PELVIS WITHOUT CONTRAST INDICATION / CLINICAL INFORMATION: Pt complains of lower abd pain with nausea and a leaking Barclay. Prostatectomy a few days ago. TECHNIQUE: Axial CT images were obtained through the abdomen and pelvis without IV contrast. All CT scans at this location are performed using CT dose reduction for ALARA by means of automated exposure control. COMPARISON: None available. FINDINGS: LOWER CHEST: There is mild subsegmental atelectasis in the lung bases. LIVER: No significant abnormality. GALLBLADDER: No significant abnormality. BILE DUCTS: No significant abnormality. PANCREAS: No significant abnormality. SPLEEN: No significant abnormality. ADRENALS: No significant abnormality. RIGHT KIDNEY / URETER: No significant abnormality. LEFT KIDNEY / URETER: No significant abnormality. STOMACH / SMALL BOWEL: There is a small hiatal hernia. There is no obstruction. COLON: No significant abnormality. APPENDIX: No significant abnormality. PERITONEUM: There is a small amount of free fluid in the upper abdomen. There is fluid noted in the prostate resection bed. There is free intraperitoneal air consistent with history of recent surgery. There is some fluid noted between the urinary bladder and the rectum measures approximately 4 cm. There is some extraperitoneal air in the pelvis and there is some air in the inguinal canals bilaterally. LYMPH NODES: No significant adenopathy. AORTA / ARTERIES: No significant abnormality. IVC / VEINS: No significant abnormality. URINARY BLADDER: Contracted around a Barclay catheter. REPRODUCTIVE ORGANS: Changes of recent prostatectomy ADDITIONAL FINDINGS: None. SKELETAL SYSTEM: No acute abnormality. IMPRESSION: 1. Postoperative changes are noted in the abdomen and pelvis. There is free intraperitoneal air as well as some extraperitoneal air which is presumably related to recent surgery. 2. There is a fluid collection in the pelvis at the prostatectomy site extending superiorly between the bladder and rectum. 3. There is a small amount of free fluid adjacent to the liver and spleen. - Medical Decision Making Patient is a 59-year-old male abdominal pain, malfunctioning Barclay and leakage around the Barclay, nausea and vomiting and shortness of breath. Patient states that shortness of breath resolved prior to his initial evaluation. Patient had multiple bouts of nausea vomiting. Patient has postop abdominal pain, the patient recently had a prostatectomy and prostate surgery with Dr. PANTOJA,, Urology. Patient had labs done which were significant for acute renal failure hyperglycemia and hyperkalemia. Patient given IV fluids. Patient given IV Zosyn. Patient's UA is pending. Patient had a chest x-ray which was negative for acute findings except for air in the diaphragm area. Patient had an EKG done which was negative for acute findings showed normal ST. I personally reviewed the EKG and chest x-ray. Patient admitted to the hospital service for further evaluation treatment. Critical care time documented due to the multiple reassessments, prolonged time at the bedside, interpretation of diagnostics and labs. - Differential Diagnosis Renal failure, UTI, urinary retention, clogged Barclay, Critical Care Time: Yes Critical care time in (mins) excluding proc time.: 35 Critical care attestation.: If time is entered above; I have spent that time in minutes in the direct care of this critically ill patient, excluding procedure time. Critical Care Time: 35 minutes ED Disposition Clinical Impression: Urinary retention, Shortness of breath, S/P prostatectomy, Hyperkalemia Renal failure Qualifiers: Renal failure chronicity: acute Acute renal failure type: unspecified Qualified Code(s): N17.9 - Acute kidney failure, unspecified Abdominal pain Qualifiers: Abdominal location: lower abdomen, unspecified Qualified Code(s): R10.30 - Lower abdominal pain, unspecified Nausea & vomiting Qualifiers: Vomiting type: unspecified Vomiting Intractability: non-intractable Qualified Code(s): R11.2 - Nausea with vomiting, unspecified Disposition: OP ADMIT IP TO THIS HOSP Is pt being admited?: Yes Does the pt Need Aspirin: No Condition: Critical Time of Disposition: 05:00
[2020-09-09] MEDS ORDERED: SODIUM CHLORIDE IRRI 500 ML 500 ML IR ONE (03:19)
--- NOTE | 2020-09-09 04:11 | Cat Scan Report ---
CT ABDOMEN AND PELVIS WITHOUT CONTRAST INDICATION / CLINICAL INFORMATION: Pt complains of lower abd pain with nausea and a leaking Barclay. Pr ostatectomy a few days ago. TECHNIQUE: Axial CT images were obtained through the abdomen and pelvis without IV contrast. All CT scans at this location are performed using CT dose reduction for ALARA by means of automated exposure control. COMPARISON: None available. FINDINGS: LOWER CHEST: There is mild subsegmental atelectasis in the lung bases. LIVER: No significant abnormality. GALLBLADDER: No significant abnormality. BILE DUCTS: No significant abnormality. PANCREAS: No significant abnormality. SPLEEN: No significant abnormality. ADRENALS: No significant abnormality. RIGHT KIDNEY / URETER: No significant abnormality. LEFT KIDNEY / URETER: No significant abnormality. STOMACH / SMALL BOWEL: There is a small hiatal hernia. There is no obstruction. COLON: No significant abnormality. APPENDIX: No significant abnormality. PERITONEUM: There is a small amount of free fluid in the upper abdomen. There is fluid noted in the p rostate resection bed. There is free intraperitoneal air consistent with history of recent surgery. T here is some fluid noted between the urinary bladder and the rectum measures approximately 4 cm. Ther e is some extraperitoneal air in the pelvis and there is some air in the inguinal canals bilaterally. LYMPH NODES: No significant adenopathy. AORTA / ARTERIES: No significant abnormality. IVC / VEINS: No significant abnormality. URINARY BLADDER: Contracted around a Barclay catheter. REPRODUCTIVE ORGANS: Changes of recent prostatectomy ADDITIONAL FINDINGS: None. SKELETAL SYSTEM: No acute abnormality. IMPRESSION: 1. Postoperative changes are noted in the abdomen and pelvis. There is free intraperitoneal air as we ll as some extraperitoneal air which is presumably related to recent surgery. 2. There is a fluid collection in the pelvis at the prostatectomy site extending superiorly between t he bladder and rectum. 3. There is a small amount of free fluid adjacent to the liver and spleen. Signer Name: Dani Solomon MD Signed: 09/09/2020 4:06 AM Workstation Name: [id number]
[2020-09-09] MEDS ORDERED: PIPERACIL/TAZOBACTA 4.5/NS 100 4.5 GM/100 ML VIAL IV ONE (04:48)
[2020-09-09] MEDS ORDERED: MORPHINE 4 MG/1 ML INJ IV PRN (05:01)
[2020-09-09] MEDS ORDERED: ONDANSETRON 4 MG/2 ML INJ IV PRN (05:01)
[2020-09-09] MEDS ORDERED: ACETAMINOPHEN 325 MG TAB PO PRN (05:01)
[2020-09-09] MEDS ORDERED: oxyCODONE /ACETAMINOPHEN 5-325MG TAB PO PRN (05:01)
[2020-09-09] MEDS ORDERED: NALOXONE 0.4 MG/1 ML INJ IV PRN (05:01)
--- NOTE | 2020-09-09 05:09 | History and Physical Report ---
History of Present Illness Date of examination: 09/09/20 Date of admission: 09/09/2020 Chief complaint: Abdominal pain History of present illness: 59-year-old -[place] male with history of hypertension, hyperlipidemia, and prostate cancer who was POD #3 status post robotic prostatectomy (Dr. Yoon), who presents to [facility] ED with complaints of abdominal pain, and leaking of Barclay. Patient states his Barclay was working fine until earlier yesterday he started experiencing abdominal pain and noticed urine was leaking around the Barclay and not going into the collection bag. He describes his pain as cramping 10/10, which was aggravated with movement. Endorses mild discomfort at surgical site, nausea, vomiting and mild dyspnea. Denies fever, chills, diarrhea, loss of smell, loss of taste, constipation, cough, hemoptysis Past History Past Medical History: cancer (Prostate), hypertension, hyperlipidemia Past Surgical History: Other ( S/p robotic prostatectomy 09/06/20 Dr. Yoon) Social history: , lives with family, full code. denies: smoking, alcohol abuse, prescription drug abuse Family history: cancer (Throat CA- mother, Prostate CA- brother) Medications and Allergies Allergies Allergy/AdvReac Type Severity Reaction Status Date / Time No Known Allergies Allergy Verified 09/08/20 18:25 Home Medications Medication Instructions Recorded Confirmed Last Taken Type lisinopriL [Zestril] 10 mg PO QDAY 07/10/17 09/03/20 09/05/20 History Pitavastatin Calcium [LiVALO] 4 mg PO DAILY 09/03/20 09/03/20 09/05/20 History Active Meds: Active Medications Piperacillin Sod/Tazobactam Sod (Zosyn/Ns 4.5gm/100ml) 4.5 gm in 100 mls @ 200 mls/hr IV ONCE ONE; Protocol Stop: 09/09/20 05:17 Review of Systems All systems: negative (As noted in HPI) Exam - Physical Exam Narrative exam: Physical exam General appearance: Present: No acute distress, alert and oriented 3, older adult male - EENT Eyes: Present: PERRL, EOM intact ENT: hearing intact, normal dentition - Neck Neck: Present: supple, normal ROM - Respiratory Respiratory effort: Non-labored Respiratory: Clear throughout - Cardiovascular Heart rate: 91 (bpm) Rhythm: Sinus Heart Sounds: Present: S1 & S2. Absent: rub, click - Extremities Extremities: no ischemia, pulses intact, Barclay catheter present on arrival - Peripheral Assessment Peripheral Pulses: within normal limits - Abdominal General gastrointestinal: soft, non-tender, normal bowel sounds - Integumentary Integumentary: Present: warm, dry - Musculoskeletal Musculoskeletal: Able to move all extremities -Neurological Neurological: CN II-XII intact - Psychiatric Psychiatric: Appropriate for situation ,cooperative - Constitutional Vitals: Temp Pulse Resp BP Pulse Ox 99.2 F 87 24 176/107 96 09/08/20 18:27 09/08/20 18:27 09/08/20 18:27 09/08/20 18:27 09/08/20 18:27 HEART Score - HEART Score Troponin: Troponin T < 0.010 ng/mL (0.00-0.029) 09/08/20 18:58 Results - Labs CBC & Chem 7: 09/08/20 18:58 09/08/20 18:58 Labs: Laboratory Last Values WBC 13.2 K/mm3 (4.5-11.0) H 09/08/20 18:58 RBC 4.94 M/mm3 (3.65-5.03) 09/08/20 18:58 Hgb 14.6 gm/dl (11.8-15.2) 09/08/20 18:58 Hct 44.6 % (35.5-45.6) 09/08/20 18:58 MCV 90 fl (84-94) 09/08/20 18:58 MCH 30 pg (28-32) 09/08/20 18:58 MCHC 33 % (32-34) 09/08/20 18:58 RDW 15.7 % (13.2-15.2) H 09/08/20 18:58 Plt Count 232 K/mm3 (140-440) 09/08/20 18:58 Lymph % (Auto) 14.0 % (13.4-35.0) 09/08/20 18:58 [place] % (Auto) 10.4 % (0.0-7.3) H 09/08/20 18:58 Eos % (Auto) 0.1 % (0.0-4.3) 09/08/20 18:58 Baso % (Auto) 0.3 % (0.0-1.8) 09/08/20 18:58 Lymph # (Auto) 1.8 K/mm3 (1.2-5.4) 09/08/20 18:58 [place] # (Auto) 1.4 K/mm3 (0.0-0.8) H 09/08/20 18:58 Eos # (Auto) 0.0 K/mm3 (0.0-0.4) 09/08/20 18:58 Baso # (Auto) 0.0 K/mm3 (0.0-0.1) 09/08/20 18:58 Seg Neutrophils % 75.2 % (40.0-70.0) H 09/08/20 18:58 Seg Neutrophils # 9.9 K/mm3 (1.8-7.7) H 09/08/20 18:58 PT 12.9 Sec. (12.2-14.9) 09/08/20 18:58 INR 0.92 (0.87-1.13) 09/08/20 18:58 APTT 23.5 Sec. (24.2-36.6) L 09/08/20 18:58 Sodium 135 mmol/L (137-145) L 09/08/20 18:58 Potassium 5.1 mmol/L (3.6-5.0) H D 09/08/20 18:58 Chloride 101.1 mmol/L (98-107) 09/08/20 18:58 Carbon Dioxide 18 mmol/L (22-30) L D 09/08/20 18:58 Anion Gap 21 mmol/L 09/08/20 18:58 BUN 23 mg/dL (9-20) H 09/08/20 18:58 Creatinine 2.0 mg/dL (0.8-1.3) H D 09/08/20 18:58 Estimated GFR 41 ml/min 09/08/20 18:58 BUN/Creatinine Ratio 12 % 09/08/20 18:58 Glucose 125 mg/dL (75-100) H 09/08/20 18:58 Calcium 9.5 mg/dL (8.4-10.2) 09/08/20 18:58 Magnesium 2.20 mg/dL (1.7-2.3) 09/08/20 18:58 Total Bilirubin 0.40 mg/dL (0.1-1.2) 09/08/20 18:58 AST 20 units/L (5-40) 09/08/20 18:58 ALT 13 units/L (7-56) 09/08/20 18:58 Alkaline Phosphatase 60 units/L (35-129) 09/08/20 18:58 Troponin T < 0.010 ng/mL (0.00-0.029) 09/08/20 18:58 NT-Pro-B Natriuret Pep 17.03 pg/mL (0-900) 09/08/20 18:58 Total Protein 7.3 g/dL (6.3-8.2) 09/08/20 18:58 Albumin 3.9 g/dL (3.9-5) 09/08/20 18:58 Albumin/Globulin Ratio 1.1 % 09/08/20 18:58 - Imaging and Cardiology Imaging and Cardiology: CT abdomen pelvis FINDINGS: LOWER CHEST: There is mild subsegmental atelectasis in the lung bases. LIVER: No significant abnormality. GALLBLADDER: No significant abnormality. BILE DUCTS: No significant abnormality. PANCREAS: No significant abnormality. SPLEEN: No significant abnormality. ADRENALS: No significant abnormality. RIGHT KIDNEY / URETER: No significant abnormality. LEFT KIDNEY / URETER: No significant abnormality. STOMACH / SMALL BOWEL: There is a small hiatal hernia. There is no obstruction. COLON: No significant abnormality. APPENDIX: No significant abnormality. PERITONEUM: There is a small amount of free fluid in the upper abdomen. There is fluid noted in the prostate resection bed. There is free intraperitoneal air consistent with history of recent surgery. There is some fluid noted between the urinary bladder and the rectum measures approximately 4 cm. There is some extraperitoneal air in the pelvis and there is some air in the inguinal canals bilaterally. LYMPH NODES: No significant adenopathy. AORTA / ARTERIES: No significant abnormality. IVC / VEINS: No significant abnormality. URINARY BLADDER: Contracted around a Barclay catheter. REPRODUCTIVE ORGANS: Changes of recent prostatectomy ADDITIONAL FINDINGS: None. SKELETAL SYSTEM: No acute abnormality. IMPRESSION: 1. Postoperative changes are noted in the abdomen and pelvis. There is free intraperitoneal air as well as some extraperitoneal air which is presumably related to recent surgery. 2. There is a fluid collection in the pelvis at the prostatectomy site extending superiorly between the bladder and rectum. 3. There is a small amount of free fluid adjacent to the liver and spleen. CXR: FINDINGS: SUPPORT DEVICES: None. HEART / MEDIASTINUM: No significant abnormality. LUNGS / PLEURA: No significant pulmonary or pleural abnormality. No pneumothorax. ADDITIONAL FINDINGS: Moderate pneumoperitoneum likely secondary to recent prostatectomy 3 days ago IMPRESSION: 1. No acute findings. 2. Pneumoperitoneum likely secondary to recent prostatectomy Assessment and Plan Assessment and plan: Acute abdominal pain -CT abdomen pelvis showed fluid collection in the pelvis at the prostatectomy site extending superiorly between the bladder and rectum -Patient reports relief after Barclay cath flush and is now draining -Supportive care Malfunction of Barclay catheter -Flushed in ED with improvement in flow -Dr. Yoon consulted [facility] -Cr on admission 2.0 -Hydrate with IVF -Avoid nephrotoxic agents -Renal dose all meds Leukocytosis -WBC on admission 13.2 -?? Inflammatory response related to surgery vs infection -Afebrile -UA cultures pending -Received 1 dose of empiric IV ABX in ED -Will hold off on continuing abx for now -Continue to work-up source and monitor CBC History of prostate cancer -Status post robotic prostatectomy on 09/06/2020 (Dr. Yoon) HTN -Monitor BP -Resume lisinopril HLD -Continue statin DVT PPX -on SCDs, encourage ambulation -Hold anticoagulation since patient is 3 days postop, resume per surgical team recommendations Advance Directives: No VTE prophylaxis?: Chemical, Mechanical Reason for no VTE Prophylaxis: Surgical contraindication Plan of care discussed with patient/family: Yes
[2020-09-09 05:46] LABS: Bacteria,Urine 2+ /HPF (Negative); Bilirubin,Urine NEG (Negative); Blood,Urine LG (Negative); Color,Urine Amber (Yellow); Mucus,Urine 1+ /HPF; Urobilinogen,Urine < 2.0 mg/dL (<2.0)
[2020-09-09 05:47] LABS: RBC,Urine > 182.0 /HPF (0.0-6.0)
[2020-09-09] MEDS ORDERED: SODIUM CHLORIDE 0.45% 1000 ML 1,000 ML IV SCH (06:00)
--- NOTE | 2020-09-09 08:25 | Progress Note ---
Assessment and Plan cath draining clear no cho for obs Subjective Date of service: 09/09/20 Objective - Constitutional Vitals: Vital Signs - 12hr 09/09/20 09/09/20 09/09/20 04:41 04:45 05:01 Pulse Rate 90 89 Respiratory 11 L 16 17 Rate Blood Pressure O2 Sat by Pulse 96 95 Oximetry 09/09/20 09/09/20 09/09/20 05:15 05:31 05:45 Pulse Rate 86 86 94 H Respiratory 13 16 14 Rate Blood Pressure O2 Sat by Pulse 95 96 97 Oximetry 09/09/20 09/09/20 09/09/20 06:01 06:15 06:31 Pulse Rate 82 86 81 Respiratory 15 16 18 Rate Blood Pressure 142/81 142/81 156/80 O2 Sat by Pulse 98 96 96 Oximetry 09/09/20 06:45 Pulse Rate 83 Respiratory 14 Rate Blood Pressure 156/80 O2 Sat by Pulse 97 Oximetry General appearance: Present: well-nourished - Neck Neck: supple - Respiratory Respiratory effort: normal Extremities: no ischemia - Gastrointestinal General gastrointestinal: Present: soft, non-tender - Genitourinary Male genitourinary: normal - Labs CBC & Chem 7: 09/08/20 18:58 09/08/20 18:58 Labs: Abnormal lab results 09/08/20 09/08/20 09/08/20 Range/Units 18:58 18:58 18:58 WBC 13.2 H (4.5-11.0) K/mm3 RDW 15.7 H (13.2-15.2) % [place] % (Auto) 10.4 H (0.0-7.3) % [place] # (Auto) 1.4 H (0.0-0.8) K/mm3 Seg Neutrophils % 75.2 H (40.0-70.0) % Seg Neutrophils # 9.9 H (1.8-7.7) K/mm3 APTT 23.5 L (24.2-36.6) Sec. Sodium 135 L (137-145) mmol/L Potassium 5.1 H D (3.6-5.0) mmol/L Carbon Dioxide 18 L D (22-30) mmol/L BUN 23 H (9-20) mg/dL Creatinine 2.0 H D (0.8-1.3) mg/dL Glucose 125 H (75-100) mg/dL Urine WBC (Auto) (0.0-6.0) /HPF 09/09/20 Range/Units 04:46 WBC (4.5-11.0) K/mm3 RDW (13.2-15.2) % [place] % (Auto) (0.0-7.3) % [place] # (Auto) (0.0-0.8) K/mm3 Seg Neutrophils % (40.0-70.0) % Seg Neutrophils # (1.8-7.7) K/mm3 APTT (24.2-36.6) Sec. Sodium (137-145) mmol/L Potassium (3.6-5.0) mmol/L Carbon Dioxide (22-30) mmol/L BUN (9-20) mg/dL Creatinine (0.8-1.3) mg/dL Glucose (75-100) mg/dL Urine WBC (Auto) 8.0 H (0.0-6.0) /HPF Medications & Allergies - Medications Allergies/Adverse Reactions: Allergies No Known Allergies Allergy (Verified 09/08/20 18:25) Home Medications: Home Medications Medication Instructions Recorded Confirmed Last Taken Type lisinopriL [Zestril] 10 mg PO QDAY 07/10/17 09/03/20 09/05/20 History Pitavastatin Calcium [LiVALO] 4 mg PO DAILY 09/03/20 09/03/20 09/05/20 History Active Medications: Generic Name Dose Route Start Last Admin Trade Name Freq PRN Reason Stop Dose Admin Acetaminophen 650 mg 09/09/20 05:01 Acetaminophen 325 Mg Tab PO Q4H PRN Pain MILD(1-3)/Fever >100.5/[place] Atorvastatin Calcium 20 mg 09/09/20 22:00 Atorvastatin 20 Mg Tab PO QHS JENNIFER Docusate Sodium 100 mg 09/09/20 10:00 Docusate Sodium 100 Mg Cap PO BID [facility] Sodium Chloride 1,000 mls @ 75 mls/hr 09/09/20 06:00 Nacl 0.45% 1000 Ml IV DIRECT JENNIFER Lisinopril 10 mg 09/09/20 10:00 Lisinopril 10 Mg Tab PO QDAY [facility] Morphine Sulfate 2 mg 09/09/20 05:01 Morphine 4 Mg/1 Ml Inj IV Q4H PRN Pain , Severe (7-10) Naloxone HCl 0.1 mg 09/09/20 05:01 Naloxone 0.4 Mg/1 Ml Inj IV Q2MIN PRN Res Rate </= 8 or 02 SAT < 92% Ondansetron HCl 4 mg 09/09/20 05:01 Ondansetron 4 Mg/2 Ml Inj IV Q8H PRN Nausea And Vomiting Oxycodone/Acetaminophen 1 tab 09/09/20 05:01 Oxycodone /Acetaminophen 5-325mg Tab PO Q6H PRN Pain, Moderate (4-6) Sodium Chloride 10 ml 09/09/20 10:00 Sodium Chloride 0.9% 10 Ml Flush Syringe IV BID JENNIFER Sodium Chloride 10 ml 09/09/20 05:01 Sodium Chloride 0.9% 10 Ml Flush Syringe IV PRN PRN LINE FLUSH HEART Score - HEART Score Troponin: Troponin T < 0.010 ng/mL (0.00-0.029) 09/08/20 18:58
--- NOTE | 2020-09-09 09:44 | Discharge Summary ---
Providers - Providers Date of Admission: 09/09/20 05:01 Date of discharge: 09/09/20 Attending physician: JENNIFER KUMAR 09/09/20 05:01 Consult to Physician [CONS] Routine Comment: Consulting Provider: FIDE YOON Physician Instructions: Reason For Exam: ABD PAIN. S/P PROST Primary care physician: BIT SANDER Hospitalization Reason for admission: abd pain Condition: Critical Hospital course: 59-year-old -[place] male with history of hypertension, hyperlipidemia, and prostate cancer who was POD #3 status post robotic prostatectomy (Dr. Yoon), who presents to [facility] ED with complaints of abdominal pain, and leaking of Barclay. Patient stated his Barclay was working fine until earlier on 09/07 he started experiencing abdominal pain and noticed urine was leaking around the Barclay and not going into the collection bag. He described his pain as cramping 10/10, which was aggravated with movement. The patient was admitted with diagnosis of acute abdominal pain, malfunction of Barclay catheter, acute kidney injury, leukocytosis, history of prostate cancer, hypertension, hyperlipidemia. CT abdomen pelvis showed fluid collection in the pelvis at the prostatectomy site extending superiorly between the bladder and rectum. The patient received intervention in the emergency department with relief after Barclay cath flush and is now draining. Urology evaluated the patient and felt that the acute kidney injury and CT findings was to be expected and consistent with postop changes from the prostatectomy. Urology felt patient could be discharged home. Dedicated discharge time 35 minutes Disposition: DC-01 TO HOME OR SELFCARE Final Discharge Diagnosis (Prints w/discharge instructions): acute abdominal pain, malfunction of Barclay catheter, acute kidney injury, obstructive uropathy, leukocytosis, history of prostate cancer, hypertension, hyperlipidemia. Sepsis ruled out Core Measure Documentation - Palliative Care Palliative Care/ Comfort Measures: Not Applicable - Core Measures Any of the following diagnoses?: none Exam - Constitutional Vitals: Temp Pulse Resp BP Pulse Ox 99.2 F 83 14 156/80 97 09/08/20 18:27 09/09/20 06:45 09/09/20 06:45 09/09/20 06:45 09/09/20 06:45 General appearance: Present: no acute distress, well-nourished - EENT Eyes: Present: PERRL ENT: hearing intact, clear oral mucosa - Neck Neck: Present: supple, normal ROM - Respiratory Respiratory effort: normal Respiratory: bilateral: CTA - Cardiovascular Heart Sounds: Present: S1 & S2. Absent: rub, click - Extremities Extremities: pulses symmetrical, No edema Peripheral Pulses: within normal limits - Abdominal General gastrointestinal: Present: soft, non-tender, non-distended, normal bowel sounds Male genitourinary: Present: normal - Integumentary Integumentary: Present: clear, warm, dry - Musculoskeletal Musculoskeletal: gait normal, strength equal bilaterally - Psychiatric Psychiatric: appropriate mood/affect, intact judgment & insight - Neurologic Neurologic: CNII-XII intact, moves all extremities Plan Activity: advance as tolerated Weight Bearing Status: Weight Bear as Tolerated Diet: regular Follow up with: PRIMARY CAREMD [Primary Care Provider] - 3-5 Days FIDE YOON MD [Staff Physician] - 7 Days
[2020-09-09] MEDS ORDERED: LISINOPRIL 10 MG TAB PO SCH (10:00)
[2020-09-09] MEDS ORDERED: DOCUSATE SODIUM 100 MG CAP PO SCH (10:00)
[2020-09-09] MEDS ORDERED: LISINOPRIL 20 MG TAB PO SCH (10:00)
[2020-09-09] MEDS ORDERED: PITAVASTATIN CALCIUM 4 MG PO SCH (10:00)
[2020-09-09] MEDS ORDERED: HEPARIN 5,000 UNIT/1 ML VIAL SUB-Q SCH (10:00)
[2020-09-09 12:20] VITALS: BP 137/76
--- NOTE | 2020-09-09 12:35 | Electrocardiograph Report ---
[facility] Test Date: 2020-09-08 Test Time: 18:31:42 Pat Name: RENETTA ORTEZ Department: Room: [place] [address] Gender: M Director Regulatory Compliance: : 1960 Requested By: JENNIFER DAMICO Order Number: [id number] Reading MD: Nicko Sofia Measurements Intervals [place] Rate: 84 P: 76 GA: 163 QRS: 63 QRSD: 80 T: 64 QT: 353 QTc: 417 Interpretive Statements Sinus rhythm Left atrial enlargement Nonspecific T abnrm, anterolateral leads No previous ECG available for comparison Electronically Signed On 09-09-2020 12:34:48 EDT by Nicko Sofia
--- NOTE | 2020-09-10 01:43 | Consultation ---
DATE OF CONSULTATION: 09/09/2020 HISTORY OF PRESENT ILLNESS: The patient is a gentleman who is 2-3 days post-robotic prostatectomy is admitted for abdominal pain. His potassium was high. His creatinine is 2.0. He is being admitted for observation. He had significant pain. His catheter was irrigated. It is clear now. He feels dramatically better. He had a chest x-ray PAST MEDICAL HISTORY: As mentioned above. PAST SURGICAL HISTORY: As mentioned. He has had a CT scan, which was reported as no acute process. REVIEW OF SYSTEMS: Markedly improved. PHYSICAL EXAMINATION: GENERAL: Awake, alert, in no distress. ABDOMEN: Soft, nondistended. Old scars from recent surgery healing well. Belly is soft. IMPRESSION: Post-robotic prostatectomy, abdominal pain, hyperkalemia. PLAN: ____ for observation. TID: [id number] RECEIPT: [id number] WESLEY/KALINA/FLAKO
== END 2020-09-09 12:25 | disposition home or self-care (01) ==
LOC: ED 18:00 → 3A 09-09 05:01
PROVIDERS: ADMIT Internal Medicine Geriatric Medicine; ATTEND Hospitalist
DX: T83.011A Breakdown (mechanical) of indwelling urethral catheter, initial encounter (principal); N17.9 Acute kidney failure, unspecified; R33.9 Retention of urine, unspecified; R10.9 Unspecified abdominal pain; D72.829 Elevated white blood cell count, unspecified; I10 Essential (primary) hypertension; E87.5 Hyperkalemia; E78.5 Hyperlipidemia, unspecified; Z85.46 Personal history of malignant neoplasm of prostate; Z90.79 Acquired absence of other genital organ(s); Z79.899 Other long term (current) drug therapy; Z98.890 Other specified postprocedural states
CPT/HCPCS: 36415; 71046; 74176; 80053; 81001; 83735; 83880; 84484; 85025; 85610; 85730; 87040; 93005; 96361; 96365; 96375; 99291; G0378; J1170; J2405; J2543; J7030